=== PATIENT | male | born 1945 | race African-American/Black ===

== ENCOUNTER 2022-01-06 12:57 | Outpatient (CLI) | payer MEDICARE, SELFPAY ==
[2022-01-06 11:12] LABS: Hematocrit 40.7 % (42.0-52.0); Hemoglobin 12.9 g/dL (14.0-18.0); Mean Corpuscular HGB Conc 31.7 g/dl (32-36); Mean Corpuscular Hemoglobin 26.3 pg (26-34); Mean Corpuscular Volume 82.9 fl (80-100); Mean Platelet Volume 9.3 fl (7.4-10.4); Platelet Count Result 211 k/mm3 (150-375); Red Blood Count 4.91 M/mm3 (4.6-6.20); Red Cell Distribution Width 13.9 % (11.5-14.5); White Blood Count 7.9 K/mm3 (4.5-10.0)
[2022-01-06 11:28] LABS: Alanine Aminotransferase 20 U/L (4-50); Alkaline Phosphatase 73 U/L (38-126); Anion Gap 4 mmol/L (8-16); Aspartate Amino Transferase 23 U/L (17-59); Bilirubin,Total 0.3 mg/dL (0.2-1.3); Blood Urea Nitrogen 16 mg/dL (9-20); CRP < 0.5 mg/dL (<1.0); Calcium 8.8 mg/dL (8.4-10.2); Carbon Dioxide 27 mmol/L (22-30); Chloride 107 mmol/L (98-107); Estimated Glomerular Filt Rate 54; Glucose 133 mg/dL (65-110); Potassium 4.4 mmol/L (3.4-5.0); Sodium 138 mmol/L (137-145)
[2022-01-06 11:58] LABS: Erythrocyte Sedimentation Rate 17 mm/hr (0-20)
[2022-01-06 15:00] LABS: Toxigenic C. Diff NEGATIVE (NEGATIVE)
[2022-01-12 00:37] LABS: Calprotectin, Stool 236 mcg/g
== END 2022-01-06 12:58 | disposition home or self-care (01) ==
PROVIDERS: PCP Nurse Practitioner Family; Visit Provider Nurse Practitioner Family
DX: R19.7 Diarrhea, unspecified (principal)
CPT/HCPCS: 36415; 80053; 83993; 85027; 85652; 86140; 87045; 87427; 87493

== ENCOUNTER 2022-02-08 01:46 | Day surgery (SDC) | payer MEDICARE, SELFPAY ==
[2022-01-21 10:59] VITALS: BMI 29.2
[2022-02-08 08:05] VITALS: BP 139/76; PULSE 66; RESP 18; TEMP 36.6; O2SAT 100; BMI 26.9
[2022-02-08 08:17] LABS: Glucose Point of Care 178 mg/dl (65-105)
[2022-02-08] MEDS: LACTATED RINGERS 1,000 ML 150 ML IV CONT (08:45)
--- NOTE | 2022-02-08 08:56 | WPDGICN ---
Assessment and Plan Assessment and plan (1) Rectal bleeding: Code(s): K62.5 - Hemorrhage of anus and rectum Status: Acute Assessment and Plan: patient reports rectal bleeding several months ago. He is known to have hemorrhoids. Plan to evaluate with colonoscopy. At the time of screening colonoscopy high-fiber diet is advised. Further recommendations will be given after endoscopy. This appears to be a very infrequent finding. Patient gives a questionable history of Crohn's colitis in the past. This is not been substantiated as of this date. He has never been given medications suggesting this is not active (2) History of colon polyps: Code(s): Z86.010 - Personal history of colonic polyps Status: Acute Assessment and Plan: Patient gives a history of colon polyps removed from the colon by previous colonoscopy 5 years ago. Surveillance colonoscopy advised at this time. (3) Family history of colon cancer in mother: Code(s): Z80.0 - Family history of malignant neoplasm of digestive organs Status: Acute Assessment and Plan: Patient reports that his mother had colon cancer. For this reason screening colonoscopy at 5 year intervals is advised. (4) CLL (chronic lymphocytic leukemia): Code(s): C91.10 - Chronic lymphocytic leukemia of B-cell type not having achieved remission Status: Acute Assessment and Plan: Patient is followed by Hematology has a history of CLL currently felt to be in remission. GI Consult Note Consult date/time: 02/08/22 08:56 HPI: Toan Hsu is a 76 year old male Presents for colonoscopy patient reports having had bright red blood per rectum with bowel movements several months ago. This lasted for a very brief time is subsequently resolved. Patient reports he is known to have hemorrhoids in fact has had hemorrhoid surgery in the past. Additionally patient reports a prior history of colon polyps most recently 5 years ago performed in [place]. He reports his mother had colon cancer. 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 Patient has been followed for CLL which is felt to be in remission. He recently had a urethral stricture which was dilated by urology service several months ago. Patient presents today for colonoscopy because of bleeding as well as is family history of colon cancer and a personal history of colon polyps. Review of Systems Review of Systems: All systems reviewed & are unremarkable except as noted in HPI and below PMFSH Past Medical History Medical History (Updated 02/08/22 @ 08:59 by Amrik Magdaleno MD) CLL (chronic lymphocytic leukemia) Crohn's colitis Diarrhea HTN (hypertension) Overweight (BMI 25.0-29.9) Prostate cancer Surgical History Surgical History (Updated 01/06/22 @ 12:57 by PAPO Rodriguez) History of bowel resection Family History Family History (Updated 01/06/22 @ 10:01 by Dolores Cortez MA) Father Heart disease Mother Hypertension Social History Social History (Updated 01/06/22 @ 09:45 by Dolores Cortez MA) Years smoked: 2 Smoking status: Former smoker Tobacco type: cigarettes Second hand tobacco smoke exposure: Yes Alcohol intake: unknown Substance use: unknown Living arrangements: with family Gender identity (if verbalized by the patient): Male Spiritual care concerns: No Meds Home Medications and Allergies Home Medications Medication Instructions Recorded Confirmed Type allopurinol 100 mg tablet 100 mg PO DAILY 01/06/22 02/08/22 History amlodipine 10 mg tablet 10 mg PO DAILY 01/06/22 02/08/22 History aspirin 81 mg tablet,delayed 81 mg PO DAILY 01/06/22 02/08/22 History release cetirizine 10 mg tablet 10 mg PO DAILY PRN 01/06/22 02/08/22 History chlorthalidone 25 mg tablet
--- NOTE | 2022-02-08 09:06 | WPDANESEPPF ---
Anes - Initial Pre Proc Eval Procedure: Operation Date: 02/08/22 09:00 Proposed Procedures p Colonoscopy - Amrik Magdaleno MD Date/Time: 02/08/22 09:06 Surgeon: Amrik Magdaleno MD Pre Op Diagnosis: Rectal bleeding Patient Data Age: 76 Gender: M Height: 1.8 m Weight: 87.7 kg Last Vital Signs Temp 97.8 F 02/08/22 08:05 Pulse 66 02/08/22 08:05 Resp 18 02/08/22 08:05 BP 139/76 02/08/22 08:05 Pulse Ox 100 02/08/22 08:05 Allergies Allergy/AdvReac Type Severity Reaction Status Date / Time No Known Allergies Allergy Verified 02/08/22 08:16 Home Medications Medication Instructions Recorded Confirmed Type allopurinol 100 mg tablet 100 mg PO DAILY 01/06/22 02/08/22 History amlodipine 10 mg tablet 10 mg PO DAILY 01/06/22 02/08/22 History aspirin 81 mg tablet,delayed 81 mg PO DAILY 01/06/22 02/08/22 History release cetirizine 10 mg tablet 10 mg PO DAILY PRN 01/06/22 02/08/22 History chlorthalidone 25 mg tablet 25 mg PO DAILY 01/06/22 02/08/22 History cholecalciferol (vitamin D3) 125 125 mcg PO DAILY 01/06/22 02/08/22 History mcg (5,000 unit) capsule cholestyramine (with sugar) 4 gram 4 g PO DAILY PRN #348.6 g 01/06/22 02/08/22 Rx oral powder cyclobenzaprine 10 mg tablet 10 mg PO TID 01/06/22 02/08/22 History ferrous sulfate 325 mg (65 mg 325 mg PO DAILY 01/06/22 02/08/22 History iron) tablet glucagon 1 mg solution for 1 mg SUBCUT ONCE PRN 01/06/22 02/08/22 History injection ibuprofen 800 mg tablet 800 mg PO Q8H PRN tablet 01/06/22 02/08/22 History ketotifen fumarate 0.025 % (0.035 1 drp EACH EYE BID PRN 01/06/22 02/08/22 History %) eye drops meloxicam 15 mg tablet 15 mg PO DAILY 01/06/22 02/08/22 History memantine 10 mg tablet 10 mg PO BID 01/06/22 02/08/22 History montelukast 10 mg tablet 10 mg PO DAILY 01/06/22 02/08/22 History multivitamin with minerals-folic 1 tablet PO DAILY 01/06/22 02/08/22 History acid 120 mcg chewable tablet tizanidine 4 mg tablet 4 mg PO QHS PRN 01/06/22 02/08/22 History insulin aspart U-100 [Novolog 12 unit SUBCUT TID 01/21/22 02/08/22 History Flexpen U-100 Insulin] Laboratory Tests 02/08/22 08:14 POC Capillary Glucose 178 mg/dl H mg/dl (65-105) Patient hx anesthesia problems: none Family hx anesthesia problems: none Results Review: All pre-operative results and documents have been reviewed as part of the pre-operative evaluation. [facility] Past Medical History Medical History (Updated 02/08/22 @ 08:59 by Amrik Magdaleno MD) CLL (chronic lymphocytic leukemia) Crohn's colitis Diarrhea HTN (hypertension) Overweight (BMI 25.0-29.9) Prostate cancer Surgical History Surgical History (Updated 01/06/22 @ 12:57 by PAPO Rodriguez) History of bowel resection Family History Family History (Updated 01/06/22 @ 10:01 by Dolores Cortez MA) Father Heart disease Mother Hypertension Social History Social History (Updated 01/06/22 @ 09:45 by Dolores Cortez MA) Years smoked: 2 Smoking status: Former smoker Tobacco type: cigarettes Second hand tobacco smoke exposure: Yes Alcohol intake: unknown Substance use: unknown Living arrangements: with family Gender identity (if verbalized by the patient): Male Spiritual care concerns: No Anes - Eval Final PreProcedure Day of Procedure 02/08/22 09:06 Patient weight: overweight Heart: regular rate and rhythm Lungs: clear to auscultation Airway: Mallampati scale class III Neurological: alert and oriented Last oral intake: >/= 8 hours ASA classification: III Anesthetic plan: proceed Anesthesia type and monitoring: general GIVS and standard monitoring Results Review: All pre-operative results and documents have been reviewed as part of the pre-operative evaluation. Informed Consent: The patient's anesthetic plan and its attendant risks and benefits were discussed with the patient/family/POA. Questions were solicited and answers provid
[2022-02-08 09:25] VITALS: BP 112/40; PULSE 74; RESP 14; O2SAT 99
[2022-02-08 09:35] VITALS: BP 111/37; PULSE 71; RESP 18; O2SAT 100
[2022-02-08 09:39] LABS: Glucose Point of Care 172 mg/dl (65-105)
[2022-02-08 09:45] VITALS: BP 119/55; PULSE 63; RESP 15; O2SAT 100
== END 2022-02-08 09:58 | disposition home or self-care (01) ==
PROVIDERS: PCP Nurse Practitioner Family; Visit Provider Internal Medicine Gastroenterology
PROC: 0DJD8ZZ Inspection of Lower Intestinal Tract, Via Natural or Artificial Opening Endoscopic (ICD-10-PCS; CPT 45378; principal; 2022-02-08 09:00)
DX: K62.5 Hemorrhage of anus and rectum (principal); K64.8 Other hemorrhoids; C91.10 Chronic lymphocytic leukemia of B-cell type not having achieved remission; C61 Malignant neoplasm of prostate; I10 Essential (primary) hypertension; Z86.010 Personal history of colon polyps; Z80.0 Family history of malignant neoplasm of digestive organs; Z90.49 Acquired absence of other specified parts of digestive tract; Z79.899 Other long term (current) drug therapy
CPT/HCPCS: 45378; 82948; J2704; J7120